=== PATIENT | male | born 1950 | race Hispanic/Latino ===

== ENCOUNTER 2018-03-07 05:46 | Inpatient (IN) | payer OTHER, MEDICARE ==
[~2018-03-07] VITALS: Ht 167.6 cm; Wt 65.5 kg
[2018-03-07] MEDS ORDERED: SODIUM CHLORIDE 0.9% 1000ML 1,000 ML IV ONE (06:13)
[2018-03-07] MEDS ORDERED: HALOPERIDOL LACTATE 5 MG/ML VIAL ONE (06:13)
[2018-03-07] MEDS ORDERED: ONDANSETRON HCL MDV 20ML 2 MG/ML VIAL ONE (06:14)
[2018-03-07] MEDS ORDERED: KETOROLAC TROMETHAMINE 30MG/ML ONE (06:31)
[2018-03-07 06:33] LABS: BASOPHILS % (AUTO) 0.2 % (0.0-5.0); EOSINOPHILS % (AUTO) 1.4 % (0.0-8.0); HEMATOCRIT 42.4 % (42-54); LYMPHOCYTES % (AUTO) 16.6 % (21.0-51.0); MEAN CORPUSCULAR HEMOGLOBIN 31.7 pg (27.0-33.0); MEAN CORPUSCULAR HGB CONC 34.5 g/dL (32.0-36.0); MEAN CORPUSCULAR VOLUME 91.9 fL (79-99); MONOCYTES % (AUTO) 6.6 % (3.0-13.0); NEUTROPHILS % (AUTO) 75.2 % (40.0-77.0); PLATELET COUNT (AUTO) 210 K/uL (130-400); RED BLOOD CELL COUNT(AUTO) 4.62 MIL/uL (4.50-6.20); RED CELL DISTRIBUTION WIDTH 13.9 % (11.0-15.5); WHITE BLOOD COUNT (AUTO) 16.3 K/uL (4.8-10.8)
[2018-03-07 06:39] LABS: CARBON DIOXIDE 28 mmol/L (21-32); CHLORIDE 95 mmol/L (101-111); GLOMERULAR FILTR. RATE CALC 80 mL/min (>60); GLUCOSE,RANDOM 135 mg/dL (70-105); POTASSIUM 3.9 mmol/L (3.5-5.1); SODIUM SERUM 130 mmol/L (136-145); UREA NITROGEN, BLOOD 11 mg/dL (7-18)
[2018-03-07 06:42] LABS: INR 1.03 (0.85-1.15); PARTIAL THROMBOPLASTIN TIME 26.6 SEC (26.3-35.5); PROTHROMBIN TIME 10.8 SEC (9.6-11.6)
[2018-03-07 06:45] LABS: ALANINE AMINOTRANSFERASE 27 U/L (12-78); ALBUMIN 3.5 g/dL (3.5-5.0); ASPARTATE AMINOTRANSFERASE 26 U/L (10-37); BILIRUBIN,DIRECT 0.2 mg/dL (0.0-0.3); BILIRUBIN,TOTAL 1.4 mg/dL (0.2-1.0); CREATINE KINASE, TOTAL 223 U/L (21-232); TOTAL PROTEIN, SERUM 6.5 g/dL (6.0-8.3)
[2018-03-07 06:53] LABS: LIPASE < 50 U/L (114-286)
[2018-03-07] MEDS ORDERED: HYDROMORPHONE 1 MG/1 ML AMP ONE ×2 (08:21→09:53)
[2018-03-07 08:39] LABS: APPEARANCE,URINE Clear (CLEAR); BILIRUBIN,URINE Negative (NEGATIVE); COLOR,URINE Yellow (YELLOW); GLUCOSE, URINE (UA) Negative (NEGATIVE); KETONES,URINE Negative (NEGATIVE); LEUKOCYTE ESTERASE ,URINE Negative (NEGATIVE); NITRATE,URINE Negative (NEGATIVE); OCCULT BLOOD,URINE Negative (NEGATIVE); PH,URINE 7.5 (5.0-8.0); PROTEIN,URINE Negative (NEGATIVE); UROBILINOGEN,URINE 0.2 mg/dL (0.2-1.0)
[2018-03-07 12:00] VITALS: BP 146/67
[2018-03-07] MEDS ORDERED: TRAM50TA4 PO (12:08)
[2018-03-07] MEDS ORDERED: OXYC60TA7 PO (12:08)
[2018-03-07] MEDS ORDERED: HYDR8TAB43 PO (12:08)
[2018-03-07] MEDS ORDERED: ONDANSETRON HCL 4 MG/2 ML VIAL IVP PRN ×2 (12:15→19:15)
[2018-03-07] MEDS ORDERED: LACTULOSE 20 GM/30 ML UDCUP PO PRN (12:45)
[2018-03-07] MEDS ORDERED: HYDROMORPHONE 1 MG/1 ML AMP IVP PRN (14:30)
[2018-03-07 16:27] VITALS: BP 124/76
[2018-03-07] MEDS ORDERED: ACETAMINOPHEN 325 MG TAB PO PRN (19:15)
[2018-03-07] MEDS ORDERED: HYDRALAZINE HCL 20 MG/ML VIAL IV PRN (19:15)
[2018-03-07] MEDS ORDERED: HYDROMORPHONE HCL 2 MG TAB PO PRN (19:30)
[2018-03-07] MEDS: ENOXAPARIN SODIUM 40 MG/0.4 ML SYRINGE SQ SCH (19:58)
[2018-03-07 20:08] VITALS: BP 150/76
[2018-03-07] MEDS ORDERED: MAG HYDROX/AL HYDROX/SIMETH ES 30 ML SUSP UDCUP PO PRN (21:00)
[2018-03-07] MEDS: INSULIN HUMULIN R 100 UNIT/ML 3ML SQ SCH (21:00)
[2018-03-07] MEDS: HYDROMORPHONE 1 MG/1 ML AMP IVP PRN (21:03)
[2018-03-07] MEDS: SODIUM CHLORIDE 0.9% 1000ML 1,000 ML IV SCH ×2 (22:15→22:58)
[2018-03-08 00:08] VITALS: BP 131/76
[2018-03-08] MEDS: TRAMADOL HCL 50 MG TABLET PO PRN ×2 (00:56→07:59)
[2018-03-08] MEDS: HYDROMORPHONE 1 MG/1 ML AMP IVP PRN ×3 (02:53→18:37)
[2018-03-08 04:16] VITALS: BP 134/69
[2018-03-08 04:56] LABS: BASOPHILS % (AUTO) 0.2 % (0.0-5.0); EOSINOPHILS % (AUTO) 0.1 % (0.0-8.0); HEMATOCRIT 43.2 % (42-54); LYMPHOCYTES % (AUTO) 8.1 % (21.0-51.0); MEAN CORPUSCULAR HEMOGLOBIN 31.8 pg (27.0-33.0); MEAN CORPUSCULAR HGB CONC 34.6 g/dL (32.0-36.0); MEAN CORPUSCULAR VOLUME 91.9 fL (79-99); MONOCYTES % (AUTO) 6.7 % (3.0-13.0); NEUTROPHILS % (AUTO) 84.9 % (40.0-77.0); PLATELET COUNT (AUTO) 178 K/uL (130-400); RED CELL DISTRIBUTION WIDTH 13.7 % (11.0-15.5); WHITE BLOOD COUNT (AUTO) 19.1 K/uL (4.8-10.8)
[2018-03-08 05:11] LABS: HEMOGLOBIN A1C 6.2 % (4.0-6.0)
[2018-03-08 05:18] LABS: AMYLASE 13 U/L (25-115); CARBON DIOXIDE 28 mmol/L (21-32); CHLORIDE 94 mmol/L (101-111); CHOLESTEROL 108 mg/dL (<200); GLOMERULAR FILTR. RATE CALC 80 mL/min (>60); GLUCOSE,RANDOM 168 mg/dL (70-105); HDL CHOLESTEROL 39 mg/dL (29-71); LDL DIRECT 62 mg/dL (0-99); POTASSIUM 4.5 mmol/L (3.5-5.1); SODIUM SERUM 128 mmol/L (136-145); TRIGLYCERIDES 76 mg/dL (30-200); UREA NITROGEN, BLOOD 9 mg/dL (7-18)
[2018-03-08 05:20] LABS: LIPASE < 50 U/L (114-286)
[2018-03-08] MEDS: INSULIN HUMULIN R 100 UNIT/ML 3ML SQ SCH ×4 (06:01→21:00)
[2018-03-08] MEDS ORDERED: OXYCODONE HCL 20 MG TAB.SR.12H PO PRN (06:45)
[2018-03-08 07:41] VITALS: BP 149/92
[2018-03-08] MEDS: PANTOPRAZOLE SODIUM 40 MG TABLET.DR PO SCH (08:32)
[2018-03-08] MEDS: ENOXAPARIN SODIUM 40 MG/0.4 ML SYRINGE SQ SCH (08:32)
[2018-03-08] MEDS: SODIUM CHLORIDE 0.9% 1000ML 1,000 ML IV SCH ×2 (08:36→20:37)
[2018-03-08 11:08] VITALS: BP 129/75
[2018-03-08] MEDS: LEVOFLOXACIN 500 MG/D5W 100 ML 100 ML IV SCH (12:53)
[2018-03-08] MEDS ORDERED: HYDROMORPHONE 1 MG/1 ML AMP IVP SCH (13:00)
[2018-03-08 16:32] VITALS: BP 149/82
[2018-03-08 19:45] VITALS: BP 151/75
[2018-03-09] VITALS: BP 149/82
[2018-03-09] MEDS: HYDROMORPHONE 1 MG/1 ML AMP IVP PRN ×3 (00:33→12:46)
[2018-03-09 04:00] VITALS: BP 138/75
[2018-03-09] MEDS: SODIUM CHLORIDE 0.9% 1000ML 1,000 ML IV SCH ×2 (04:15→06:38)
[2018-03-09 05:18] LABS: BASOPHILS % (AUTO) 0.1 % (0.0-5.0); EOSINOPHILS % (AUTO) 0.1 % (0.0-8.0); HEMATOCRIT 41.5 % (42-54); LYMPHOCYTES % (AUTO) 6.7 % (21.0-51.0); MEAN CORPUSCULAR HEMOGLOBIN 32.4 pg (27.0-33.0); MEAN CORPUSCULAR HGB CONC 35.7 g/dL (32.0-36.0); MEAN CORPUSCULAR VOLUME 90.6 fL (79-99); MONOCYTES % (AUTO) 8.1 % (3.0-13.0); PLATELET COUNT (AUTO) 170 K/uL (130-400); RED BLOOD CELL COUNT(AUTO) 4.58 MIL/uL (4.50-6.20); RED CELL DISTRIBUTION WIDTH 13.8 % (11.0-15.5); WHITE BLOOD COUNT (AUTO) 17.4 K/uL (4.8-10.8)
[2018-03-09 05:29] LABS: POTASSIUM 3.9 mmol/L (3.5-5.1)
[2018-03-09] MEDS: INSULIN HUMULIN R 100 UNIT/ML 3ML SQ SCH ×2 (05:36→11:30)
[2018-03-09 07:59] VITALS: BP 143/76
[2018-03-09] MEDS: PANTOPRAZOLE SODIUM 40 MG TABLET.DR PO SCH (09:02)
[2018-03-09] MEDS: ENOXAPARIN SODIUM 40 MG/0.4 ML SYRINGE SQ SCH (09:03)
[2018-03-09 11:15] VITALS: BP 147/70
[2018-03-09] MEDS: LEVOFLOXACIN 500 MG/D5W 100 ML 100 ML IV SCH (12:45)
== END 2018-03-09 15:45 | disposition home or self-care (01) | DRG 439 ==
LOC: EDH 05:46 → EDHIP 10:30 → 4BH 11:40
PROVIDERS: ADMIT Family Medicine; ATTEND Family Medicine
DX: K86.1 Other chronic pancreatitis (principal); E87.1 Hypo-osmolality and hyponatremia; R10.9 Unspecified abdominal pain; E11.9 Type 2 diabetes mellitus without complications; F10.10 Alcohol abuse, uncomplicated; D72.829 Elevated white blood cell count, unspecified; K59.00 Constipation, unspecified; F17.210 Nicotine dependence, cigarettes, uncomplicated; Z88.5 Allergy status to narcotic agent; Z79.891 Long term (current) use of opiate analgesic
CPT/HCPCS: 36415; 71045; 74176; 80048; 80061; 80076; 81003; 82150; 82550; 82948; 83036; 83690; 83735; 84484; 85025; 85610; 85730; 93005; J1170; J1630; J1650; J1885; J1956; J7030